=== PATIENT | male | born 1990 | race Caucasian/White ===

== ENCOUNTER 2025-01-12 12:43 | Emergency (ER) | payer OTHER, MEDICAID ==
[~2025-01-12] VITALS: Ht 170.2 cm; Wt 98.0 kg
[2025-01-12 12:53] VITALS: BP 151/101; TEMP 36.9; O2SAT 99
[2025-01-12 12:55] VITALS: PULSE 100; RESP 16; O2SAT 100
[2025-01-12] MEDS: BACITRACIN ZINC OINT UDPKT TOP ONE (16:00)
[2025-01-12] MEDS ORDERED: BO1 TP (16:08)
== END 2025-01-12 16:25 | disposition home or self-care (01) ==
LOC: ER 12:43
DX: S90.811A Abrasion, right foot, initial encounter (principal); Z90.49 Acquired absence of other specified parts of digestive tract; Z79.899 Other long term (current) drug therapy; V49.9XXA Car occupant (driver) (passenger) injured in unspecified traffic accident, initial encounter; Y93.01 Activity, walking, marching and hiking; Y92.89 Other specified places as the place of occurrence of the external cause; Y99.8 Other external cause status
CPT/HCPCS: 99282